=== PATIENT | female | born 1970 | race Caucasian/White ===

== ENCOUNTER 2021-12-10 05:52 | Emergency (ER) | payer OTHER ==
[2021-12-10 06:25] LABS: Absolute Lymphocytes (CBC) 1.8 K/uL (0.7-4.9); Hematocrit 38.6 % (36.0-45.0); MCV 90.1 fL (80-100); MPV 8.5 fL (7.6-11.3); RBC Red Blood Cell Count 4.28 M/uL (3.86-4.86)
--- NOTE | 2021-12-10 06:36 | EDPHYS ---
Physician Documentation [facility] Name: Sandy Tineo Age: 51 yrs Sex: Female : 1970 Arrival Date: 12/10/2021 Time: 05:54 Bed 7 Private MD: PRIYA Physician Jeremi Mitchell HPI: 12/10 06:30 This 51 yrs old Female presents to ER via Ambulatory with complaints of isabel Vomiting Blood. 06:30 The patient presents with abdominal pain in the upper abdomen, abdominal distention in isabel the epigastric area, in the upper abdomen. Onset: The symptoms/episode began/occurred yesterday. The patient presents to the emergency department with nausea, vomiting, abdominal pain, of the epigastric area. Onset: The symptoms/episode began/occurred yesterday. Possible causes: unknown. The symptoms are aggravated by nothing. The symptoms are alleviated by nothing. The patient presents to the emergency department vomiting blood, bright red, 4 times since symptom onset. Abdominal pain: described as burning, constant, located in the epigastric area. 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 - Social history:: Smoking status: Patient denies any tobacco usage or history of. ROS: 06:32 Constitutional: Negative for fever, chills, and weight loss, Eyes: Negative for injury, isabel pain, redness, and discharge, ENT: Negative for injury, pain, and discharge, Neck: Negative for injury, pain, and swelling, Cardiovascular: Negative for chest pain, palpitations, and edema, Respiratory: Negative for shortness of breath, cough, wheezing, and pleuritic chest pain, Back: Negative for injury and pain, : Negative for injury, bleeding, discharge, and swelling, MS/Extremity: Negative for injury and deformity, Skin: Negative for injury, rash, and discoloration, Neuro: Negative for headache, weakness, numbness, tingling, and seizure, Psych: Negative for depression, anxiety, suicide ideation, homicidal ideation, and hallucinations, Allergy/Immunology: Negative for hives, rash, and allergies, Endocrine: Negative for neck swelling, polydipsia, polyuria, polyphagia, and marked weight changes, Hematologic/Lymphatic: Negative for swollen nodes, abnormal bleeding, and unusual bruising. 06:32 Abdomen/GI: Positive for abdominal pain, nausea and vomiting, abdominal cramps. Exam: 06:32 Constitutional: This is a well developed, well nourished patient who is awake, alert, isabel and in no acute distress. Head/Face: Normocephalic, atraumatic. Eyes: Pupils equal round and reactive to light, extra-ocular motions intact. Lids and lashes normal. Conjunctiva and sclera are non-icteric and not injected. Cornea within normal limits. Periorbital areas with no swelling, redness, or edema. ENT: Nares patent. No nasal discharge, no septal abnormalities noted. Tympanic membranes are normal and external auditory canals are clear. Oropharynx with no redness, swelling, or masses, exudates, or evidence of obstruction, uvula midline. Mucous membranes moist. Neck: Trachea midline, no thyromegaly or masses palpated, and no cervical lymphadenopathy. Supple, full range of motion without nuchal rigidity, or vertebral point tenderness. No Meningismus. Chest/axilla: Normal chest wall appearance and motion. Nontender with no deformity. No lesions are appreciated. Cardiovascular: Regular rate and rhythm with a normal S1 and S2. No gallops, murmurs, or rubs. Normal PMI, no JVD. No pulse deficits. Respiratory: Lungs have equal breath sounds bilaterally, clear to auscultation and percussion. No rales, rhonchi or wheezes noted. No increased work of breathing, no retractions or nasal flaring. Back: No spinal tenderness. No costovertebral tenderness. Full range of motion. Skin: Warm, dry with normal turgor. Normal color with no rashes, no lesions, and no evidence of cellulitis. MS/ Extremity: Pulses equal, no cyanosis. Neurovascular intact. Full, normal range of motion. Neuro: Awake and alert, GCS 15, oriented to person, place, time, and situation. Cranial nerves II-XII grossly intact. Motor strength 5/5 in all extremities. Sensory grossly intact. Cerebellar exam normal. Normal gait. 06:32 Abdomen/GI: Inspection: abdomen appears normal, Bowel sounds: normal, Palpation: mild abdominal tenderness, in the epigastric area, right upper quadrant and left upper quadrant, Liver: no appreciated palpable abnormalities, Hernia: not appreciated. 07:31 ECG was reviewed by the Attending Physician. [facility] Vital Signs: 06:09 BP 131 / 83; Pulse 50; Resp 16; Temp 97.7(O); Pulse Ox 100% ; Weight 70.31 kg; Height 5 kd3 ft. 7 in. (170.18 cm); Pain 0/10; 07:17 BP 120 / 79; Pulse 52; Resp 16 S; Temp 98.2(TE); Pulse Ox 100% on R/A; ha1 10:03 BP 150 / 98 LA Supine; Pulse 54; Resp 14; Temp 97.9; Pulse Ox 99% on R/A; ha1 10:32 BP 132 / 78; Pulse 54; Resp 16 S; Pulse Ox 99% on R/A; aa5 11:30 BP 123 / 84; Pulse 57; Resp 16 S; Temp 98.0(TE); Pulse Ox 99% on R/A; aa5 06:09 Body Mass Index 24.28 (70.31 kg, 170.18 cm) kd3 MDM: 06:01 Patient medically screened. [facility] 07:21 Differential diagnosis: bowel obstruction, Cholelithiasis, diverticulitis, gastritis, isabel GI Bleed, Mesenteric ischemia or infarction, non-specific abd pain, pancreatitis. Data reviewed: vital signs, nurses notes, lab test result(s), EKG, radiologic studies, CT scan, plain films. Data interpreted: monitoring tech: rate is 50 beats/min, rhythm is regular, Pulse oximetry: on room air is 100 %. Test interpretation: by ED physician or midlevel provider: ECG, plain radiologic studies. Counseling: I had a detailed discussion with the patient and/or guardian regarding: the historical points, exam findings, and any diagnostic results supporting the discharge/admit diagnosis, lab results, radiology results. ED course: Dr. CALVERT KEEP PT HERE AT [facility], SEEMS LIKE A LIMITED GI BLEED , IF THE BLEEDING CONTINUES OR THR PATIENT BECOMES UNSTABLE , THEN PLEASE CALL BACK AND WE WILL ACCEPT THE PATIENT. 12/10 06:18 Order name: CBC with Diff; Complete Time: 07:19 kd3 08 06:18 Order name: CMP; Complete Time: 07:19 kd3 12/10 06:18 Order name: Lipase; Complete Time: 07:19 kd3 08 06:30 Order name: Magnesium; Complete Time: 07:19 [facility] 12/10 06:30 Order name: NT PRO-BNP; Complete Time: 07:19 [facility] 12/10 06:30 Order name: PT-INR; Complete Time: 07:19 [facility] 12/10 06:30 Order name: Troponin HS; Complete Time: 07:19 [facility] 12/10 06:30 Order name: XRAY Chest (1 view); Complete Time: 08:47 [facility] 12/10 06:30 Order name: SARS-COV-2 RT PCR (Document "Date of Onset" if Symptomatic); Complete Time: [facility] 10:10 12/10 06:30 Order name: CT Abd/Pelvis - IV Contrast Only; Complete Time: 08:30 [facility] 12/10 06:49 Order name: Bilirubin Direct; Complete Time: 07:19 EDMS 12/10 07:20 Order name: Krupp; Complete Time: 08:47 mw2 12/10 06:18 Order name: IV Saline Lock; Complete Time: 06:27 kd3 12/10 06:18 Order name: Labs collected and sent; Complete Time: 06:22 3 12/10 06:30 Order name: EKG; Complete Time: 06:31 [facility] 12/10 06:30 Order name: Cardiac monitoring; Complete Time: 07:18 [facility] 12/10 06:30 Order name: EKG - Nurse/Tech; Complete Time: 07:18 [facility] 12/10 06:30 Order name: O2 Per Protocol; Complete Time: 06:32 [facility] 12/10 06:30 Order name: O2 Sat Monitoring; Complete Time: 06:32 [facility] EC:31 Rate is 50 beats/min. Rhythm is regular. QRS Ridge is Normal. NV interval is normal. QRS isabel interval is normal. QT interval is normal. No Q waves. T waves are Normal. No ST changes noted. Clinical impression: Sinus bradycardia and No evidence of ischemia. Interpreted by me. Reviewed by me. Administered Medications: 06:58 Drug: ProTONIX (pantoprazole) 80 mg Route: IVP; Site: left forearm; lp1 07:20 Follow up: Response: No adverse reaction aa5 06:58 Drug: Zofran (Ondansetron) 4 mg Route: IVP; Site: left forearm; lp1 07:20 Follow up: Response: No adverse reaction aa5 06:59 Drug: morphine 2 mg Route: IVP; Infused Over: 4 mins; Site: left forearm; lp1 07:20 Follow up: Response: No adverse reaction aa5 07:25 Drug: morphine 4 mg Route: IVP; Infused Over: 4 mins; Site: left forearm; aa5 07:35 Follow up: Response: No adverse reaction aa5 07:35 Drug: ProTONIX (pantoprazole) 8 mg/hr Route: IV; Rate: 25 ml/hr; Site: left forearm; aa5 11:48 Follow up: IV Status: Infusion continued upon transfer aa5 08:55 Drug: NS 0.9% 500 ml Route: IV; Rate: bolus; Site: left hand; aa5 09:30 Follow up: IV Status: Completed infusion; IV Intake: 500ml aa5 08:56 Drug: NS 0.9% with KCl 20 mEq/L 1000 ml Route: IV; Rate: 125 ml/hr; Site: left hand; aa5 11:48 Follow up: IV Status: Infusion continued upon transfer aa5 11:48 Drug: Zofran (Ondansetron) 4 mg Route: IVP; Site: right hand; aa5 11:50 Follow up: Response: No adverse reaction aa5 Disposition Summary: 12/10/21 07:47 Transfer Ordered Transfer Location: [facility](12/10/21 07:47) isabel Reason: Higher level of care(12/10/21 07:47) isabel Condition: Fair(12/10/21 07:47) isabel Problem: new(12/10/21 07:47) isabel Symptoms: have improved(12/10/21 07:47) isabel Accepting Physician: TO khushi SOLIS(12/10/21 11:52) aa5 Diagnosis - GI Bleed/ Gastrointestinal hemorrhage, unspecified(12/10/21 07:47) isabel - Epigastric abdominal tenderness(12/10/21 07:47) isabel - Abnormal levels of other serum enzymes - elevated lipase(12/10/21 07:47) isabel - Vomiting(07/08/22 07:47) isabel - Hypokalemia isabel Forms: - Medication Reconciliation Form isabel - SBAR form isabel Signatures: Dispatcher [employer] EDMS Jeremi Mitchell MD MD cha Calderon, Audri, RN RN aa5 Brianna Salmeron RN RN lp1 Bulmaro Meraz, DO ms3 Cielo Neff, RN RN kd3 Corrections: (The following items were deleted from the chart) 06:49 06:31 BASIC METABOLIC PANEL+C.LAB.BRZ ordered. EDMS EDMS 06:49 06:31 HEPATIC FUNCTION+C.LAB.BRZ ordered. EDMS EDMS 07:26 06:36 TO [facility]/ MEDICINE AND GI isabel isabel 07:26 06:36 [facility] isabel isabel 07:26 06:36 Higher level of care isabel isabel 07:26 06:36 Fair isabel isabel 07:26 06:36 new isabel isabel 07:26 06:36 have improved isabel isabel 07:26 06:36 Epigastric abdominal tenderness isabel isabel 07:26 06:36 GI Bleed/ Gastrointestinal hemorrhage, unspecified isabel isabel 07:38 07:29 Observation isabel isabel 07:38 07:29 Lexis, Aston isabel isabel 07:38 07:29 Telemetry/MedSurg (observation) isabel isabel 07:38 07:29 Fair isabel isabel 07:38 07:29 new isabel isabel 07:38 07:29 have improved isabel isabel 07:38 07:29 Standard isabel isabel 07:38 07:29 isabel isabel 07:38 07:29 Epigastric abdominal tenderness isabel isabel 07:38 07:29 Vomiting isabel isabel 07:38 07:29 GI Bleed/ Gastrointestinal hemorrhage, unspecified - UPPER isabel isabel 07:38 07:35 Abnormal levels of other serum enzymes - ELEVATED lipase isabel isabel 08:32 07:47 TO [facility], [facility] [place] isabel isabel 11:52 08:32 TO [facility], [facility] [place] isabel aa5
--- NOTE | 2021-12-10 06:36 | ER ---
Nurse's Notes [facility] Name: Sandy Tineo Age: 51 yrs Sex: Female : 1970 Arrival Date: 12/10/2021 Time: 05:54 Bed 7 Private MD: Diagnosis: GI Bleed/ Gastrointestinal hemorrhage, unspecified;Epigastric abdominal tenderness;Abnormal levels of other serum enzymes-elevated lipase;Vomiting;Hypokalemia Presentation: 12/10 06:09 Chief complaint: Patient states: I started feeling sick yesterday and noticed some kd3 blood in my vomit. my stomach doesn't hurt but I do still feel nauseous. Coronavirus screen: Vaccine status: Patient reports receiving the 2nd dose of the covid vaccine. Ebola Screen: No symptoms or risks identified at this time. Initial Sepsis Screen: Does the patient meet any 2 criteria? No. Patient's initial sepsis screen is negative. Does the patient have a suspected source of infection? No. Patient's initial sepsis screen is negative. Risk Assessment: Do you want to hurt yourself or someone else? Patient reports no desire to harm self or others. Onset of symptoms was December 09, 2021. 06:09 Method Of Arrival: Ambulatory kd3 06:09 Acuity: RIC 3 kd3 Triage Assessment: 06:09 General: Appears uncomfortable, Behavior is calm, cooperative. Pain: Denies pain. 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 - Social history:: Smoking status: Patient denies any tobacco usage or history of. Screenin:12 Abuse screen: Denies threats or abuse. Denies injuries from another. Nutritional kd3 screening: No deficits noted. Tuberculosis screening: No symptoms or risk factors identified. Fall Risk None identified. Assessment: 06:12 General: Appears uncomfortable. Neuro: Level of Consciousness is awake, alert, obeys kd3 commands, Oriented to person, place, time, situation. Respiratory: Airway is patent Trachea midline Respiratory effort is even, unlabored, Respiratory pattern is regular, symmetrical. 07:30 General: Appears ill. Pain: Complains of pain in abdomen and epigastric area Pain at ha1 worst was 9 out of 10 on a pain scale. Quality of pain is described as burning, Pain began one week ago Is episodic, Also complains of nausea, vomiting blood. 07:30 Neuro: Level of Consciousness is awake, alert, obeys commands, Oriented to person, ha1 place, time, situation, Gait is steady, Speech is normal. Cardiovascular: Heart tones S1 S2 present Rhythm is sinus bradycardia. Respiratory: Airway is patent Respiratory effort is even, unlabored. GI: Abdomen is non-distended, Bowel sounds present X 4 quads. Abd is soft X 4 quads Abdomen is tender to palpation in epigastric area Reports epigastric pain, nausea, Pain is 9 out of 10 on a pain scale. vomiting bright red blood. Derm: Skin is pink, warm \\T\\ dry. Musculoskeletal: Capillary refill < 3 seconds. 07:30 : No signs and/or symptoms were reported regarding the genitourinary system. EENT: No ha1 signs and/or symptoms were reported regarding the EENT system. 08:55 Reassessment: Patient is alert, oriented x 3, equal unlabored respirations, skin aa5 warm/dry/pink. Pt sitting up in bed. Pt reports pain has not improved, MD was notified. No vomiting noted or reported. . 09:55 Reassessment: Report given to [facility] to MERY Valles. Awaiting EMS for aa5 transfer . 10:00 Reassessment: Patient is alert, oriented x 3, equal unlabored respirations, skin aa5 warm/dry/pink. 10:05 Reassessment: Pt refusing to be transferred at this time, pt states "I can't go that aa5 far because I don't have a ride back home", MD was notified and Dr. Meraz spoke to patient and pt agreed to transfer at this time. . 11:48 Reassessment: Patient is alert, oriented x 3, equal unlabored respirations, skin aa5 warm/dry/pink. Pt c/o nausea, Zofran administered. . Vital Signs: 06:09 BP 131 / 83; Pulse 50; Resp 16; Temp 97.7(O); Pulse Ox 100% ; Weight 70.31 kg; Height 5 kd3 ft. 7 in. (170.18 cm); Pain 0/10; 07:17 BP 120 / 79; Pulse 52; Resp 16 S; Temp 98.2(TE); Pulse Ox 100% on R/A; ha1 10:03 BP 150 / 98 LA Supine; Pulse 54; Resp 14; Temp 97.9; Pulse Ox 99% on R/A; ha1 10:32 BP 132 / 78; Pulse 54; Resp 16 S; Pulse Ox 99% on R/A; aa5 11:30 BP 123 / 84; Pulse 57; Resp 16 S; Temp 98.0(TE); Pulse Ox 99% on R/A; aa5 06:09 Body Mass Index 24.28 (70.31 kg, 170.18 cm) kd3 ED Course: 05:54 Patient arrived in ED. mr 06:01 Jeremi Mitchell MD is Attending Physician. isabel 06:04 Cielo Neff RN is Primary Nurse. kd3 06:09 Arm band placed on right wrist. kd3 06:10 Missed attempt(s): 22 gauge in right antecubital area. lp1 06:10 Inserted saline lock: 22 gauge in left forearm, using aseptic technique. lp1 06:11 Triage completed. kd3 06:12 Patient has correct armband on for positive identification. kd3 06:12 No provider procedures requiring assistance completed. kd3 06:38 initiated a transfer with Ericka Snell from [facility]. mw2 06:58 XRAY Chest (1 view) In Process Unspecified. EDMS 06:59 COVID swab sent to lab. lp1 07:10 CT Abd/Pelvis - IV Contrast Only In Process Unspecified. EDMS 07:27 Aston Pires MD is Hospitalizing Provider. isabel 07:58 Missed attempt(s): 20 gauge in right antecubital area. Bleeding controlled, band aid dh3 applied, catheter tip intact. 08:06 Inserted saline lock: 22 gauge in right hand, using aseptic technique. dh3 08:07 [place] Sent. dh3 11:50 Patient transferred, IV remains in place. aa5 Administered Medications: 06:58 Drug: ProTONIX (pantoprazole) 80 mg Route: IVP; Site: left forearm; lp1 07:20 Follow up: Response: No adverse reaction aa5 06:58 Drug: Zofran (Ondansetron) 4 mg Route: IVP; Site: left forearm; lp1 07:20 Follow up: Response: No adverse reaction aa5 06:59 Drug: morphine 2 mg Route: IVP; Infused Over: 4 mins; Site: left forearm; lp1 07:20 Follow up: Response: No adverse reaction aa5 07:25 Drug: morphine 4 mg Route: IVP; Infused Over: 4 mins; Site: left forearm; aa5 07:35 Follow up: Response: No adverse reaction aa5 07:35 Drug: ProTONIX (pantoprazole) 8 mg/hr Route: IV; Rate: 25 ml/hr; Site: left forearm; aa5 11:48 Follow up: IV Status: Infusion continued upon transfer aa5 08:55 Drug: NS 0.9% 500 ml Route: IV; Rate: bolus; Site: left hand; aa5 09:30 Follow up: IV Status: Completed infusion; IV Intake: 500ml aa5 08:56 Drug: NS 0.9% with KCl 20 mEq/L 1000 ml Route: IV; Rate: 125 ml/hr; Site: left hand; aa5 11:48 Follow up: IV Status: Infusion continued upon transfer aa5 11:48 Drug: Zofran (Ondansetron) 4 mg Route: IVP; Site: right hand; aa5 11:50 Follow up: Response: No adverse reaction aa5 Medication: 06:12 VIS not applicable for this client. kd3 Intake: 09:30 IV: 500ml; Total: 500ml. aa5 Outcome: 06:36 ER care complete, transfer ordered by . isabel 07:29 Decision to Hospitalize by Provider. isabel 07:47 ER care complete, transfer ordered by . isabel 11:50 Transferred by ground EMS Transfer form completed. X-rays sent w/ patient. Note: to aa5 [facility] in [place], [place]. 11:50 Condition: stable aa5 11:50 Instructed on the need for transfer. 11:52 Patient left the ED. aa5 Signatures: Dispatcher [employer] Jeremi Wall MD MD cha Rivera, Mary mr Calderon, Audri, RN RN aa5 Brianna Salmeron RN RN lp1 Madeline Moreno 3 Alvin Mena 2 Cielo Neff RN RN kd3 Melissa Colon RN RN ha1 Corrections: (The following items were deleted from the chart) 10: 07:30 GI: Abdomen is non-distended, Pt is actively vomiting bright red blood, Reports ha1 epigastric pain, nausea, Pain is 9 out of 10 on a pain scale. ha1 10: 07:30 Derm: No signs and/or symptoms reported regarding the dermatologic system. ha1 ha1
[2021-12-10 06:47] LABS: Bilirubin Total 0.3 mg/dL (0.2-1.0); Potassium 3.4 mmol/L (3.5-5.1); Protein, Total 7.5 g/dL (6.4-8.2)
[2021-12-10] MEDS ORDERED: ONDANSETRON 4 MG/2 ML VIAL ONE ×2 (06:51→11:51)
[2021-12-10] MEDS ORDERED: NA CHLORIDE 0.9% 250 ML ONE (06:52)
[2021-12-10] MEDS ORDERED: PANTOPRAZOLE 40 MG INJ ONE (06:52)
[2021-12-10 06:55] LABS: Protime INR 0.96
[2021-12-10] MEDS ORDERED: MORPHINE 2 MG/ML SYR ONE (07:00)
[2021-12-10 07:05] LABS: Bilirubin Direct 0.1 mg/dL (0-0.2); Magnesium 2.1 mg/dL (1.8-2.4); Troponin High Sensitivity 3.8 pg/mL (<58.9)
[2021-12-10] MEDS ORDERED: MORPHINE 4 MG/ML SYR ONE (07:30)
--- NOTE | 2021-12-10 08:22 | RAD REPORT ---
EXAM DESCRIPTION: CTAbdomen Pelvis W Contrast - 12/10/2021 7:08 am CLINICAL HISTORY: Abdominal pain. GI bleed COMPARISON: No comparisons TECHNIQUE: Biphasic CT imaging of the abdomen and pelvis was performed with 100 ml non-ionic IV cont rast. All CT scans are performed using dose optimization technique as appropriate and may include automated exposure control or mA/KV adjustment according to patient size. FINDINGS: The lung bases are clear. The liver, spleen, pancreas, adrenal glands and kidneys are within normal limits. No bowel obstruction, free air, free fluid or abscess. The appendix is normal. No evidence of signi ficant lymphadenopathy. Trace free fluid in the pelvis. Mild lower lumbar degenerative changes are present. IMPRESSION: No acute intra-abdominal or pelvic finding.
--- NOTE | 2021-12-10 08:46 | RAD REPORT ---
EXAM DESCRIPTION: RAD - Chest Single View - 12/10/2021 6:56 am CLINICAL HISTORY: ABDOMINAL DISTENTION Chest pain. COMPARISON: No comparisons FINDINGS: Portable technique limits examination quality. The lungs are grossly clear. The heart is normal in size. No displaced fractures. IMPRESSION: No acute intrathoracic process suspected.
[2021-12-10] MEDS ORDERED: NS KCL 20MEQ 1,000 ML IV ONE (08:50)
[2021-12-10] MEDS ORDERED: NA CHLORIDE 0.9% 500 ML ONE (08:50)
[2021-12-10 12:18] VITALS: BP 150/98; TEMP 97.9; O2SAT 99
--- NOTE | 2021-12-13 13:57 | EKG ---
Test Date: 2021-12-10 Test Time: 07:22:12 Manager Garage: [place]OME MEASUREMENT RESULTS: Intervals: Rate: 50 WV: 166 QRSD: 88 QT: 482 QTc: 439 [place]: P: 89 WV: 166 QRS: 84 T: 82 INTERPRETIVE STATEMENTS: Sinus bradycardia Otherwise normal ECG Compared to ECG 12/14/2004 14:58:00 Sinus rhythm no longer present Electronically Signed On 12-13-21 13:50:26 CDT by Watson Hough
== END 2021-12-10 11:52 | disposition short-term general hospital (02) ==
LOC: ER 05:52
DX: R10.816 Epigastric abdominal tenderness (principal); K92.2 Gastrointestinal hemorrhage, unspecified; E87.6 Hypokalemia; R74.8 Abnormal levels of other serum enzymes; R11.10 Vomiting, unspecified; F20.9 Schizophrenia, unspecified; Z88.0 Allergy status to penicillin; Z88.8 Allergy status to other drugs, medicaments and biological substances; Z20.822 Contact with and (suspected) exposure to COVID-19
CPT/HCPCS: 85025; 36415; 83735; 85610; 80178; 82248; 84484; 83690; 80053; 83880; 74177; 71045; U0003; Q9967; C9113; J2270; J7050; J7040; J2405 ×2; J3480; 93005

== ENCOUNTER 2023-12-11 16:50 | Emergency (ER) | payer OTHER ==
--- NOTE | 2023-12-11 17:33 | RAD REPORT ---
EXAM DESCRIPTION: RAD - Chest Single View - 12/11/2023 5:29 pm CLINICAL HISTORY: CHEST PAIN COMPARISON: Chest Single View dated 12/10/2021 FINDINGS: Lines: None. Lungs: No evidence of edema or pneumonia. Pleural: No significant pleural effusions or pneumothorax. Cardiac: The heart size is within normal limits. Mediastinum: Within normal limits. Bones: No acute fractures. Other: None IMPRESSION: No acute cardiopulmonary disease.
--- NOTE | 2023-12-11 18:00 | RAD REPORT ---
EXAM DESCRIPTION: CT - Head Brain Wo Cont - 12/11/2023 5:54 pm CLINICAL HISTORY: SYNCOPE COMPARISON: No comparisons TECHNIQUE: All CT scans are performed using dose optimization technique as appropriate and may inclu de automated exposure control or mA/KV adjustment according to patient size. FINDINGS: No intracranial hemorrhage, hydrocephalus or extra-axial fluid collection.No areas of brai n edema or evidence of midline shift. The paranasal sinuses and mastoids are clear. The calvarium is intact. IMPRESSION: No acute intracranial abnormality.
[2023-12-11 18:16] LABS: PT Prothrombin Time 12.3 SECONDS (9.4-12.5); PTT, Activated Partial Thromb 30.7 SECONDS (24.3-36.9); Protime INR 1.12
[2023-12-11 18:28] LABS: ALT/SGPT 47 U/L (13-56); AST/SGOT 34 U/L (15-37); Albumin 3.9 g/dL (3.4-5.0); Alkaline Phosphatase 71 U/L (45-117); Anion Gap 11.4 mEq/L (5.0-15.0); BUN Blood Urea Nitrogen 9 mg/dL (7-18); Bicarbonate 22 mEq/L (21-32); Bilirubin Total 0.4 mg/dL (0.2-1.0); Globulin 3.9 g/dL (2.3-3.5); Glomerular Filtration Rate 94 ml/min (=/>90); Glucose Level 81 mg/dL (74-106); Magnesium 2.3 mg/dL (1.6-2.4); Potassium 3.4 mEq/L (3.5-5.1); Protein, Total 7.8 g/dL (6.4-8.2); Sodium Level 139 mEq/L (136-145); Troponin High Sensitivity 3.3 pg/mL (<58.9)
[2023-12-11 18:31] LABS: Barbiturates NEGATIVE (NEGATIVE); Benzodiazepines NEGATIVE (NEGATIVE); Cocaine NEGATIVE (NEGATIVE); METHAMPHETAM NEGATIVE (NEGATIVE); Methadone NEGATIVE (NEGATIVE); Opiates NEGATIVE (NEGATIVE); Phencyclidine NEGATIVE (NEGATIVE); THC Cannibis NEGATIVE (NEGATIVE)
[2023-12-11 18:32] LABS: Bilirubin Direct < 0.2 mg/dL (0-0.2); Bilirubin Indirect, Calculated 0.2 mg/dL (0.2-0.8)
[2023-12-11 18:39] LABS: RBC Red Blood Cell Count 4.69 M/uL (3.86-4.86)
[2023-12-11 18:40] LABS: Absolute Eosinophils 0.1 K/uL (0-0.5); Absolute Lymphocytes (CBC) 1.8 K/uL (0.7-4.9); Absolute Neutrophil 3.7 K/uL (1.8-8.0); Basophils % 0.4 % (0-1.3); Eosinophils % 0.8 % (0-4.4); Hematocrit 43.5 % (36.0-45.0); Hemoglobin 14.3 g/dL (12.0-15.0); Lymphocytes % 27.5 % (15.3-44.8); MCH 30.5 pg (27.0-35.0); MCHC 32.8 g/dL (32.0-36.0); MCV 92.8 fL (80-100); Monocytes % 15.1 % (3.3-12.3); Neutrophils % 56.2 % (41.7-73.7); Platelets 159 thou/uL (152-406); Red Cell Distribution Width 13.7 % (12.1-15.2)
--- NOTE | 2023-12-11 19:00 | EDPHYS ---
Physician Documentation [facility] Name: Sandy Tineo Age: 53 yrs Sex: Female : 1970 Arrival Date: 12/11/2023 Time: 16:50 Bed 9 Private MD: PRIYA Physician Jeremi Mitchell HPI: 12/10 17:28 This 53 yrs old Female presents to ER via EMS with complaints of Syncope. sb4 17:28 patient states she was chasing after a cat at work today when she experienced a sb4 syncopal episode. she states that she has a headache and feels nauseated now but otherwise is feeling better. reports history of [place] several years ago, not on any daily medications. additionally, she states that last month she was diagnosed with a glioma and meningioma, has an appointment with a neurosurgeon in 4 days. 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 - Infectious Disease History:: Denies. - Social history:: Smoking status: Patient denies any tobacco usage or history of. ROS: 17:28 Constitutional: Negative for fever, chills, and weight loss, sb4 17:28 Abdomen/GI: Positive for nausea, 17:28 Neuro: Positive for headache, 17:28 All other systems are negative, Exam: 17:28 Constitutional: This is a well developed, well nourished patient who is awake, alert, sb4 and in no acute distress. Head/Face: Normocephalic, atraumatic. Eyes: Extra-ocular motions intact. Periorbital areas with no swelling, redness, or edema. ENT: Mucous membranes moist. Cardiovascular: Regular rate and rhythm with a normal S1 and S2. Respiratory: Lungs have equal breath sounds bilaterally, clear to auscultation and percussion. No rales, rhonchi or wheezes noted. No increased work of breathing, no retractions or nasal flaring. Abdomen/GI: Soft, non-tender, no distension. Skin: Warm, dry with normal turgor. Normal color with no rashes, no lesions, and no evidence of cellulitis. MS/ Extremity: Pulses equal, no cyanosis. Neurovascular intact. Full, normal range of motion. Neuro: Awake and alert, GCS 15, oriented to person, place, time, and situation. Motor strength 5/5 in all extremities. Sensory grossly intact. Vital Signs: 17:07 BP 133 / 83; Pulse 81; Resp 16; Temp 98.1; Pulse Ox 97% ; Weight 72.57 kg; Height 5 ft. as6 7 in. ; Pain 10/10; 17:07 Body Mass Index 25.06 (72.57 kg, 170.18 cm) as6 17:07 Pain Scale: Adult as6 MDM: 16:58 Patient medically screened. sb4 18:59 Data reviewed: vital signs, nurses notes, EMS record, lab test result(s), EKG, sb4 radiologic studies, and as a result, I will discharge patient. Scoring Tools HEART Score: History: ECG: Age: Risk Factors: 1 or 2 risk factors (1), Troponin: Total Score = 2. Counseling: I had a detailed discussion with the patient and/or guardian regarding the historical points, exam findings, and any diagnostic results supporting the discharge/admit diagnosis, lab results, radiology results, the need for outpatient follow up, a neurologist, to return to the emergency department if symptoms worsen or persist or if there are any questions or concerns that arise at home. 12/10 16:57 Order name: Basic Metabolic Panel; Complete Time: 18:33 sb4 12/10 16:57 Order name: CBC with Diff; Complete Time: 18:41 sb4 12/10 16:57 Order name: Hepatic Function; Complete Time: 18:33 sb4 12/10 16:57 Order name: Magnesium; Complete Time: 18:33 sb4 12/10 16:57 Order name: Protime (+inr); Complete Time: 18:19 sb4 12/10 16:57 Order name: Ptt, Activated; Complete Time: 18:19 sb4 12/10 16:57 Order name: Troponin High Sensitivity; Complete Time: 18:33 sb4 12/10 16:57 Order name: UDS; Complete Time: 18:33 sb4 12/10 16:57 Order name: CT Head Brain wo Cont; Complete Time: 18:04 sb4 12/10 16:57 Order name: Chest Single View XRAY; Complete Time: 17:34 sb4 12/10 16:57 Order name: Cardiac monitoring; Complete Time: 17:31 sb4 12/10 16:57 Order name: EKG - Nurse/Tech; Complete Time: 17:31 sb4 12/10 16:57 Order name: IV Saline Lock; Complete Time: 17:31 sb4 12/10 16:57 Order name: Labs collected and sent; Complete Time: 17:31 sb4 12/10 16:57 Order name: NPO; Complete Time: 17:16 sb4 12/10 16:57 Order name: O2 Per Protocol; Complete Time: 17:03 sb4 12/10 16:57 Order name: O2 Sat Monitoring; Complete Time: 17:03 sb4 EC:32 Rate is 62 beats/min. Rhythm is regular, Normal Sinus Rhythm. SC interval is normal at sb4 156 msec. QRS interval is normal at 80 msec. QT interval is normal at 396 msec. No Q waves. T waves are Normal. No ST changes noted. Clinical impression: Normal ECG and No evidence of ischemia. Interpreted by me. Reviewed by me. Administered Medications: No medications were administered Disposition Summary: 12/11/23 19:00 Discharge Ordered Notes: Location: Home sb4 Problem: new sb4 Symptoms: have improved sb4 Condition: Stable sb4 Diagnosis - Syncope sb4 Followup: sb4 - With: Private Physician - When: 1 week - Reason: Recheck today's complaints, Re-evaluation by your physician Discharge Instructions: - Discharge Summary Sheet sb4 - Syncope, Nadh-pe-Nbrr sb4 - Glioma, Adult sb4 - Meningioma sb4 Forms: - Patient Portal Instructions sb4 - Leadership Thank You Letter sb4 Addendum: 12/13/2023 18:32 Co-signature as Attending Physician, Jeremi Mitchell MD I agree with the assessment and c [place] plan of care. Signatures: Dispatcher [employer] Jeremi Wall MD MD cha Slawson, Ashby, MERY RN as6 Sariah More PA-C PAKarthik sb4 Corrections: (The following items were deleted from the chart) 12/10 16:58 16:58 BASIC METABOLIC PANEL+C.LAB.BRZ ordered. EDMS EDMS 16:58 16:58 CBC+H.LAB.BRZ ordered. EDMS EDMS 16:58 16:58 HEPATIC FUNCTION+C.LAB.BRZ ordered. EDMS EDMS 16:58 16:58 MAGNESIUM+C.LAB.BRZ ordered. EDMS EDMS 16:58 16:58 PROTIME (+INR)+COAG.LAB.BRZ ordered. EDMS EDMS 16:58 16:58 PTT, ACTIVATED+COAG.LAB.BRZ ordered. EDMS EDMS 16:58 16:58 Troponin High Sensitivity+C.LAB.BRZ ordered. EDMS EDMS 16:58 16:58 URINE DRUG SCREEN+UC.LAB.BRZ ordered. EDMS EDMS 16:58 16:58 Head Brain Wo Cont+CT.RAD.BRZ ordered. EDMS EDMS 16:58 16:58 Chest Single View+RAD.RAD.BRZ ordered. EDMS EDMS
--- NOTE | 2023-12-11 19:00 | ER ---
Nurse's Notes [facility] Name: Sandy Tineo Age: 53 yrs Sex: Female : 1970 Arrival Date: 12/11/2023 Time: 16:50 Bed 9 Private MD: Diagnosis: Syncope Presentation: 12/10 16:55 Chief complaint: EMS states: called out for syncopal episode while pt was at work. as6 Coronavirus screen: At this time, the client does not indicate any symptoms associated with coronavirus-19. Ebola Screen: No symptoms or risks identified at this time. 16:55 Method Of Arrival: EMS: [facility] as6 17:07 Initial Sepsis Screen: Does the patient meet any 2 criteria? No. Patient's initial as6 sepsis screen is negative. Does the patient have a suspected source of infection? No. Patient's initial sepsis screen is negative. Risk Assessment: Do you want to hurt yourself or someone else? Patient reports no desire to harm self or others. Onset of symptoms was December 11, 2023. 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 - Infectious Disease History:: Denies. - Social history:: Smoking status: Patient denies any tobacco usage or history of. Screenin:21 [facility] ED Fall Risk Assessment (Adult) History of falling in the last 3 months, cm10 including since admission Yes- physiologic fall (2 pts) Confusion or Disorientation No (0 pts) Intoxicated or Sedated No (0 pts) Impaired Gait No (0 pts) Mobility Assist Device Used No (0 pt) Altered Elimination No (0 pt) Score/Fall Risk Level 0 - 2 = Low Risk Oriented to surroundings, Maintained a safe environment, Hourly rounding (assess needs \T\ fall precautionary measures) done. Abuse screen: Denies threats or abuse. Denies injuries from another. Nutritional screening: No deficits noted. Tuberculosis screening: No symptoms or risk factors identified. Assessment: 19:20 General: Appears in no apparent distress. comfortable, Behavior is calm, cooperative. cm10 Pain: Denies pain. Neuro: No deficits noted. Level of Consciousness is awake, alert, obeys commands, Oriented to person, place, time, situation, Appropriate for age. Respiratory: No deficits noted. Airway is patent Respiratory effort is even, unlabored, Respiratory pattern is regular, symmetrical. Derm: No deficits noted. No signs and/or symptoms reported regarding the dermatologic system. Skin is intact, Skin is pink, warm \T\ dry. Musculoskeletal: No deficits noted. Range of motion: intact in all extremities. Vital Signs: 17:07 BP 133 / 83; Pulse 81; Resp 16; Temp 98.1; Pulse Ox 97% ; Weight 72.57 kg; Height 5 ft. as6 7 in. ; Pain 10/10; 17:07 Body Mass Index 25.06 (72.57 kg, 170.18 cm) as6 17:07 Pain Scale: Adult as6 ED Course: 16:53 Patient arrived in ED. as6 16:55 [facility]h [facility] sb4 16:55 Jeremi Mitchell MD is Attending Physician. sb4 17:02 Arm band placed on. as6 17:10 Triage completed. as6 17:31 Chest Single View XRAY In Process Unspecified. EDMS 17:33 Inserted saline lock: 22 gauge in right hand, using aseptic technique. Blood collected. ld1 17:55 CT Head Brain wo Cont In Process Unspecified. EDMS 19:21 Patient has correct armband on for positive identification. Provided Education on: cm10 Follow-up instructions. 19:21 No provider procedures requiring assistance completed. IV discontinued, intact, cm10 bleeding controlled, No redness/swelling at site. Pressure dressing applied. Administered Medications: No medications were administered Medication: 19:21 VIS not applicable for this client. cm10 Outcome: 19:00 Discharge ordered by . sb4 19:21 Discharged to home ambulatory, cm10 19:21 Condition: good 19:21 Discharge instructions given to patient, Instructed on discharge instructions, follow up and referral plans. Demonstrated understanding of instructions, follow-up care, 19:22 Patient left the ED. cm10 Signatures: Dispatcher [employer] EDMS Henrietta Meraz RN RN ld1 Kodi Cade RN RN as6 Sariah More PA-C PA-C sb4 Yue Greer, RN RN cm10
[2023-12-11 19:27] VITALS: BP 133/83; TEMP 98.1; O2SAT 97
--- NOTE | 2023-12-13 12:14 | EKG ---
Test Date: 2023-12-11 Test Time: 17:22:18 Head Orthopedic Team Physician: NICK MEASUREMENT RESULTS: Intervals: Rate: 62 MT: 156 QRSD: 80 QT: 396 QTc: 401 [place]: P: 73 MT: 156 QRS: 69 T: 47 INTERPRETIVE STATEMENTS: Normal sinus rhythm Normal ECG Compared to ECG 12/10/2021 07:22:12 Sinus bradycardia no longer present Electronically Signed On 12-13-23 12:11:28 CDT by Orlando Colón
== END 2023-12-11 19:22 | disposition home or self-care (01) ==
LOC: ER 16:50
DX: R55 Syncope and collapse (principal); I25.2 Old myocardial infarction; Z88.0 Allergy status to penicillin; Z88.8 Allergy status to other drugs, medicaments and biological substances
CPT/HCPCS: 36415; 70450; 71045; 80048; 80076; 80307; 83735; 84484; 85025; 85610; 85730; 93005; 99284